=== PATIENT | female | born 1940 | race Caucasian/White ===

== ENCOUNTER 2021-06-14 18:07 | Emergency (ER) | payer OTHER ==
[~2021-06-14] VITALS: Ht 149.9 cm; Wt 56.2 kg
== END 2021-06-14 22:52 | disposition home or self-care (01) ==
LOC: ER 18:07
DX: N93.9 Abnormal uterine and vaginal bleeding, unspecified (principal)

== ENCOUNTER 2021-07-30 08:45 | Inpatient (IN) | payer OTHER ==
[~2021-07-30] VITALS: Ht 157.5 cm; Wt 64.4 kg
[2021-07-30] MEDS ORDERED: 8HR ARTHRITIS650 MG PO (09:55)
[2021-07-30] MEDS ORDERED: TOPROL XL25 M1 PO (09:55)
[2021-07-30] MEDS ORDERED: PEPCID AC20 MG PO (09:56)
[2021-07-30] MEDS ORDERED: TRANDOLAPRIL2 MG PO (09:57)
[2021-07-30] MEDS ORDERED: ULTRAM50 MG PO (09:57)
== END 2021-08-04 13:31 | disposition home or self-care (01) | DRG 734 ==
LOC: O/R 08-01 05:35 → OB/GYN 08-01 05:35 → SURH 08-01 07:00 → OB/GYN 08-01 11:06
PROVIDERS: ADMIT Specialist; ATTEND Specialist
PROC: 07TC0ZZ Resection of Pelvis Lymphatic, Open Approach (ICD-10-PCS; 2021-08-01)
PROC: 0UT90ZZ Resection of Uterus, Open Approach (ICD-10-PCS; 2021-08-01)
PROC: 0UT70ZZ Resection of Bilateral Fallopian Tubes, Open Approach (ICD-10-PCS; 2021-08-01)
PROC: 0UT20ZZ Resection of Bilateral Ovaries, Open Approach (ICD-10-PCS; 2021-08-01)
PROC: 0DTU0ZZ Resection of Omentum, Open Approach (ICD-10-PCS; 2021-08-01)
PROC: 3E1M38Z Irrigation of Peritoneal Cavity using Irrigating Substance, Percutaneous Approach (ICD-10-PCS; 2021-08-01)
PROC: 07TD0ZZ Resection of Aortic Lymphatic, Open Approach (ICD-10-PCS; principal; 2021-08-01 07:00)
DX: C54.1 Malignant neoplasm of endometrium (principal); C56.3 Malignant neoplasm of bilateral ovaries; C77.5 Secondary and unspecified malignant neoplasm of intrapelvic lymph nodes

== ENCOUNTER 2021-12-06 21:10 | Emergency (ER) | payer OTHER ==
[~2021-12-06] VITALS: Ht 152.4 cm; Wt 58.5 kg
[~2021-12-06 21:10] MED LIST: 8HR ARTHRITIS650 MG PO; PEPCID AC20 MG PO; TOPROL XL25 M1 PO; TRANDOLAPRIL2 MG PO; ULTRAM50 MG PO
[2021-12-06] MEDS ORDERED: TAMOXIFEN CITRA10 MG PO (21:28)
[2021-12-07] MEDS ORDERED: CIPRO500 MG PO (06:25)
== END 2021-12-07 06:47 ==
LOC: ER 21:10
DX: N39.0 Urinary tract infection, site not specified (principal); K59.00 Constipation, unspecified; I10 Essential (primary) hypertension; Z85.43 Personal history of malignant neoplasm of ovary

== ENCOUNTER 2022-01-18 20:58 | Inpatient (IN) | payer OTHER ==
[~2022-01-18] VITALS: Ht 152.4 cm; Wt 50.3 kg
[~2022-01-18 20:58] MED LIST changes: +CIPRO500 MG PO; +TAMOXIFEN CITRA10 MG PO
== END 2022-01-27 00:47 | disposition expired | DRG 177 ==
LOC: ER 20:58 → ICU 01-19 01:12 → ICU-2 01-19 04:33 → ICU 01-19 17:48
PROVIDERS: ADMIT Internal Medicine; ATTEND Internal Medicine
PROC: 30243N1 Transfusion of Nonautologous Red Blood Cells into Central Vein, Percutaneous Approach (ICD-10-PCS; principal; 2022-01-19)
PROC: 02HV33Z Insertion of Infusion Device into Superior Vena Cava, Percutaneous Approach (ICD-10-PCS; 2022-01-19)
PROC: B24BZZZ Ultrasonography of Heart with Aorta (ICD-10-PCS; 2022-01-19)
PROC: 5A0945A Assistance with Respiratory Ventilation, 24-96 Consecutive Hours, High Flow/Velocity Cannula (ICD-10-PCS; 2022-01-21)
DX: B37.1 Pulmonary candidiasis (principal); A41.89 Other specified sepsis; J18.8 Other pneumonia, unspecified organism; B37.7 Candidal sepsis; R65.21 Severe sepsis with septic shock; C78.01 Secondary malignant neoplasm of right lung; E87.4 Mixed disorder of acid-base balance; E87.0 Hyperosmolality and hypernatremia; N17.9 Acute kidney failure, unspecified; I50.32 Chronic diastolic (congestive) heart failure; I13.0 Hypertensive heart and chronic kidney disease with heart failure and stage 1 through stage 4 chronic kidney disease, or unspecified chronic kidney disease; C54.1 Malignant neoplasm of endometrium; D63.0 Anemia in neoplastic disease; N18.9 Chronic kidney disease, unspecified; Z66 Do not resuscitate